=== PATIENT | female | born 1960 | race Caucasian/White ===

== ENCOUNTER 2017-08-19 06:51 | Day surgery (SDC) | payer OTHER ==
[2017-08-11 10:01] VITALS: BMI 24.5
[2017-08-19] MEDS ORDERED: MIDAZOLAM HCL 2 MG/2 ML SINGLE DOSE VIAL ONE (08:04)
[2017-08-19] MEDS ORDERED: LIDOCAINE HCL 2% (50ML VIAL) INF ONE (08:25)
[2017-08-19 09:23] VITALS: BP 120/62; PULSE 71; TEMP 98.1
--- NOTE | 2017-08-19 09:29 | OP ---
DATE OF OPERATION: 08/19/2017 PREOPERATIVE DIAGNOSIS: Left thumb trigger finger. POSTOPERATIVE DIAGNOSIS: Left thumb trigger finger. OPERATIVE PROCEDURE: Left thumb trigger finger release. ANESTHESIA: Local with sedation. COMPLICATIONS: None. ESTIMATED BLOOD LOSS: Minimal. INDICATION FOR PROCEDURE: The patient is a 56-year-old female with the above finding, indicated for operative treatment. Risks, benefits, and alternatives were discussed with the patient at length. Proper informed consent was obtained. DESCRIPTION OF PROCEDURE: After proper identification of the patient and the correct operative site, the patient was brought to the operating room and placed supine on the table. All prominences were well padded. Sedation was given by the anesthesiologist. Local anesthesia was given with 2% lidocaine. The left upper extremity was prepped and draped in the usual sterile fashion. Well-padded tourniquet was placed as well as a sterile prep. Esmarch bandage to exsanguinate left upper extremity. Tourniquet was inflated to 250 mmHg. Transverse incision made over the A1 roselia. Incision was taken sharply through the skin, with blunt and sharp dissection through the subcutaneous tissues. A1 roselia was identified. Neurovascular structures were protected. A1 roselia was divided longitudinally. Slight fraying of the flexor tendon was noted, and this was debrided. Patient was asked to flex and extend her thumb, and no further triggering was noted. Wound was irrigated with saline and repaired with a 5-0 nylon suture. Sterile dressings were applied. Patient was brought to Recovery in stable condition. She tolerated the procedure well. Jessica [id number]
[2017-08-19] MEDS ORDERED: ACETAMINOPHEN 325 MG TABLET (FP) PO PRN (10:14)
[2017-08-19] MEDS ORDERED: ONDANSETRON 4 MG/2 ML VIAL IVPUSH PRN (10:14)
[2017-08-19] MEDS ORDERED: oxyCODONE HCL 5 MG TABLET PO PRN (10:14)
[2017-08-19] MEDS ORDERED: LACTATED RINGERS SOLUTION 1,000 ML IV SCH (10:15)
== END 2017-08-19 09:28 | disposition home or self-care (01) ==
LOC: FASU 06:51
PROVIDERS: ATTEND Orthopaedic Surgery Hand Surgery
PROC: 0LN80ZZ Release Left Hand Tendon, Open Approach (ICD-10-PCS; principal; 2017-08-19 08:30)
DX: M65.312 Trigger thumb, left thumb (principal)

== ENCOUNTER 2018-07-21 07:22 | Day surgery (SDC) | payer OTHER ==
[2018-07-20 14:04] VITALS: BMI 26.6
[2018-07-21] MEDS ORDERED: ONDANSETRON 4 MG/2 ML VIAL ONE (09:01)
[2018-07-21] MEDS ORDERED: MIDAZOLAM HCL 2 MG/2 ML SINGLE DOSE VIAL ONE (09:01)
[2018-07-21] MEDS ORDERED: LIDOCAINE HCL 2% (50ML VIAL) NR ONE (09:21)
[2018-07-21] MEDS ORDERED: PROPOFOL 20 ML ONE (09:21)
[2018-07-21] MEDS ORDERED: ONDANSETRON 4 MG/2 ML VIAL IVPUSH PRN (09:23)
[2018-07-21] MEDS ORDERED: oxyCODONE HCL 5 MG TABLET PO PRN ×2 (09:23)
[2018-07-21] MEDS ORDERED: ACETAMINOPHEN 325 MG TABLET (FP) PO PRN (09:23)
[2018-07-21] MEDS ORDERED: LACTATED RINGERS SOLUTION 1,000 ML IV SCH (09:30)
[2018-07-21 10:24] VITALS: PULSE 79; TEMP 97.9
[2018-07-21 11:11] VITALS: BP 127/70
--- NOTE | 2018-07-21 20:08 | OP ---
DATE OF OPERATION: 07/21/2018 PREOPERATIVE DIAGNOSIS: 1. Right carpal tunnel syndrome. 2. Right thumb trigger finger. 3. Right long trigger finger. OPERATIVE PROCEDURE: 1. Right carpal tunnel release. 2. Right thumb trigger finger release. 3. Right long trigger finger release. SURGEON: Ron Brown M.D. ANESTHESIA: Local anesthesia plus sedation. COMPLICATIONS: None. ESTIMATED BLOOD LOSS: Minimal. INDICATION FOR PROCEDURE: The patient is a 57-year-old female with above findings indicated for operative treatment. Risks, benefits, and alternatives were discussed with the patient at length. Proper informed consent was obtained. DESCRIPTION OF PROCEDURE: After proper identification of the patient and correct operative site, the hand was marked. Local anesthesia and sedation were used. Right upper extremity was prepped and draped in the usual sterile fashion. Well padded tourniquet was placed with a sterile prep. Esmarch bandage to exsanguinate the right upper extremity. Tourniquet inflated to 250 mmHg. Longitudinal incision made over the proximal aspect of the palm. This was taken sharply through the skin with blunt and sharp dissection through subcutaneous tissues. The palmar fascia was divided longitudinally. Transcarpal ligament divided longitudinally. antebrachial fascia under direct visualization on loop magnification. This provided complete release of median nerve to the wrist. The wound was irrigated and repaired with 5-0 nylon suture. Transverse incision made over the A1 roselia to the thumb, blunt dissection was performed down to the A1 roselia. The A1 roselia was identified and divided longitudinally. The wound was then repaired with a 5-0 nylon suture. Another incision was then made over the A1 roselia to the long finger. Incision was taken sharply through skin with blunt dissection down to A1 roselia. A1 roselia divided. Patient was asked to then flex and extend her thumb and this finger, and no further trigger was noted. Wounds were repaired with 5-0 nylon sutures. Sterile dressings were applied. The patient was brought to the recovery room in stable condition. She tolerated the procedure well. RON BROWN M.D. [id number]
== END 2018-07-21 10:30 | disposition home or self-care (01) ==
LOC: FASU 07:22
PROVIDERS: ATTEND Orthopaedic Surgery Hand Surgery
PROC: 0LN70ZZ Release Right Hand Tendon, Open Approach (ICD-10-PCS; 2018-07-21)
PROC: 01N50ZZ Release Median Nerve, Open Approach (ICD-10-PCS; principal; 2018-07-21 09:22)
PROC: 0LN70ZZ Release Right Hand Tendon, Open Approach (ICD-10-PCS; 2018-07-21 09:22)
DX: G56.01 Carpal tunnel syndrome, right upper limb (principal); M65.311 Trigger thumb, right thumb; M65.331 Trigger finger, right middle finger

== ENCOUNTER 2018-09-15 06:46 | Day surgery (SDC) | payer OTHER ==
[2018-09-09 12:37] VITALS: BMI 26.6
[2018-09-15] MEDS ORDERED: PROPOFOL 20 ML ONE (08:28)
[2018-09-15] MEDS ORDERED: MIDAZOLAM HCL 2 MG/2 ML SINGLE DOSE VIAL ONE (08:28)
[2018-09-15] MEDS ORDERED: LIDOCAINE HCL 2% (50ML VIAL) INF ONE (08:30)
[2018-09-15] MEDS ORDERED: ONDANSETRON 4 MG/2 ML VIAL IVPUSH PRN (08:48)
[2018-09-15] MEDS ORDERED: ACETAMINOPHEN 325 MG TABLET (FP) PO PRN (08:48)
[2018-09-15] MEDS ORDERED: oxyCODONE HCL 5 MG TABLET PO PRN (08:48)
[2018-09-15 09:26] VITALS: TEMP 97.8
[2018-09-15 12:44] VITALS: BP 116/64; PULSE 62
--- NOTE | 2018-09-16 11:15 | OP ---
DATE OF OPERATION: 09/15/2018 PREOPERATIVE DIAGNOSES: 1. Left carpal tunnel syndrome. 2. Left long trigger finger. 3. Left ring trigger finger. POSTOPERATIVE DIAGNOSES: 1. Left carpal tunnel syndrome. 2. Left long trigger finger. 3. Left ring trigger finger. OPERATIVE PROCEDURES: 1. Left carpal tunnel release. 2. Left long trigger finger release. 3. Left ring trigger finger release. SURGEON: Ron Hodge MD ANESTHESIA: Local sedation. COMPLICATIONS: None. ESTIMATED BLOOD LOSS: Minimal. INDICATION FOR PROCEDURE: The patient is a 57-year-old female with above findings indicated for operative treatment. Risks, benefits, and alternatives were discussed with patient at length. Proper informed consent was obtained. DESCRIPTION OF PROCEDURE: After proper identification of the patient and the correct operative site, patient was brought to the operating room and placed supine on the operating table. All bony prominences were well padded. Sedation was given by the anesthesiologist. Left upper extremity was prepped and draped in usual sterile fashion. Tourniquet was inflated to 250 mmHg. A longitudinal incision was made over the proximal aspect of the palm. Incision was taken sharply through skin with blunt and sharp dissection through subcutaneous tissue. Palmar fascia was divided longitudinally. Transverse carpal ligament was divided longitudinally along with the distal 4 cm of the antebrachial fascia under direct visualization with loupe magnification. This provided complete release of the median nerve of the wrist. Wound was repaired with 5-0 plain gut suture. Incisions were then made longitudinally over the A1 pulleys to the long and ring fingers. Incisions were taken sharply through the skin with blunt and sharp dissection through subcutaneous tissue. A1 pulleys were identified and divided longitudinally. Patient was then asked to flex and extend the fingers, and no further triggering was noted. The wounds were repaired with 5-0 plain gut sutures. Sterile dressings were applied. Patient was brought to the recovery room in stable condition. She tolerated the procedure well. Jessica [id number]
== END 2018-09-15 10:00 | disposition home or self-care (01) ==
LOC: FASU 06:46
PROVIDERS: ATTEND Orthopaedic Surgery Hand Surgery
PROC: 0LN80ZZ Release Left Hand Tendon, Open Approach (ICD-10-PCS; 2018-09-15)
PROC: 0LN80ZZ Release Left Hand Tendon, Open Approach (ICD-10-PCS; 2018-09-15)
PROC: 01N50ZZ Release Median Nerve, Open Approach (ICD-10-PCS; principal; 2018-09-15 08:30)
DX: G56.02 Carpal tunnel syndrome, left upper limb (principal); M65.332 Trigger finger, left middle finger; M65.342 Trigger finger, left ring finger

== ENCOUNTER 2024-09-08 06:05 | Day surgery (SDC) | payer OTHER ==
[2024-09-05 12:41] VITALS: BMI 26.6
[2024-09-08 11:57] VITALS: RESP 20; TEMP 97.3
[2024-09-08] MEDS: LIDOCAINE HCL 1% PRESERVATIVE FREE - 30ML VIAL IJ ONE ×2 (13:56)
[2024-09-08] MEDS: BUPIVACAINE HCL/PF 0.75% 10 ML VIAL NR ONE ×2 (14:00)
[2024-09-08 14:14] VITALS: BP 141/78; PULSE 72
== END 2024-09-08 14:32 | disposition home or self-care (01) ==
LOC: JASU-SURG 06:05
PROVIDERS: ATTEND Pain Medicine Pain Medicine
PROC: 3E0T3BZ Introduction of Anesthetic Agent into Peripheral Nerves and Plexi, Percutaneous Approach (ICD-10-PCS; principal; 2024-09-08 13:15)
DX: M47.816 Spondylosis without myelopathy or radiculopathy, lumbar region (principal)
CPT/HCPCS: 76000-TC-FY